=== PATIENT | female | born 1985 | race Caucasian/White ===

== ENCOUNTER → 2022-03-08 13:37 | Outpatient (CLI) | payer OTHER, MEDICAID, SELFPAY ==
--- NOTE | 2022-03-08 | DI.US.S_ITS ---
PROCEDURE: US PELVIC COMPLETE INDICATIONS: Pelvic and perineal pain TECHNIQUE: Real-time scanning was performed of the pelvic organs, with image documentation. Additional endovaginal scanning was necessary due to incomplete visualization of the adnexal and endometrial structures by transabdominal scanning. COMPARISON: [facility], , PELVIC COMPLETE, 09/18/2014, 16:41. FINDINGS: Uterus: Uterus is anteverted and normal in size at 11.6 x 7.9 x 5.8 cm. The myometrium is homogeneous. The endometrium measures 10 mm combined thickness. Ovaries: The right ovary measures 3.5 x 2.5 x 3 cm. The left ovary measures 3 x 3.1 x 2 cm. The ovaries have a normal sonographic appearance. No adnexal masses are seen. Other: No pathologic free abdominal or pelvic fluid. IMPRESSION: No significant pelvic ultrasound abnormality can be seen. We strive to produce accurate, complete, and clear reports of imaging services. To assist us in improving patient care, this report was composed using standard report templates and voice recognition software. Therefore, it may contain abnormal punctuation, insertions and/or omissions. Occasional wrong-word or sound-alike substitutions may occur. Though we review the report and make efforts to correct it, we do recommend that the report be read carefully in proper context to recognize any text inaccuracies. Dictated by: John Webster M.D. on 03/08/2022 at 13:47 Approved by: John Webster M.D. on 03/08/2022 at 13:48
== END ==
PROVIDERS: Family Provider Family Medicine; PCP Family Medicine; Referring Provider Family Medicine; Visit Provider Family Medicine
DX: R10.2 Pelvic and perineal pain (principal)
CPT/HCPCS: 76830; 76856

== ENCOUNTER → 2022-04-12 08:33 | Outpatient (CLI) | payer OTHER, MEDICAID, SELFPAY ==
--- NOTE | 2022-04-12 | DI.NM.S_ITS ---
PROCEDURE: NM HIDA WITH CCK PHARMACEUTICAL: 4.5 mCi Tc-99m mebrofenin IV; 2.0 mcg CCK IV. INDICATIONS: Right upper quadrant pain TECHNIQUE: Following intravenous administration of Tc-99m mebrofenin, sequential anterior abdominal images were obtained. To evaluate the contractile response of the gallbladder in response to Cholecystokinin (CCK), sincalide (0.02 ?g/kg) was administered by slow intravenous infusion approximately 60 minutes after the administration of the radiopharmaceutical. Sequential imaging was continued for 30 minutes after the start of CCK infusion. Gallbladder ejection fraction was calculated. COMPARISON: None. FINDINGS: Biliary scan: There is normal tracer uptake and excretion by the liver. There is normal visualization of the intrahepatic ducts, common bile duct, and gallbladder. There is normal tracer transit into the duodenum. CCK stimulation: There is normal contractile response of the gallbladder to CCK infusion. The calculated gallbladder ejection fraction is 88%; normal values are above 35%. IMPRESSION: 1. Normal filling of gallbladder. No evidence for acute cholecystitis. 2. Normal contractile response of gallbladder to CCK stimulation. Dictated by: James Thacker M.D. on 04/12/2022 at 12:07 Approved by: James Thacker M.D. on 04/12/2022 at 12:08
== END ==
PROVIDERS: Family Provider Family Medicine; PCP Family Medicine; Referring Provider Family Medicine; Visit Provider Family Medicine
DX: R10.11 Right upper quadrant pain (principal)
CPT/HCPCS: 78227; A9537; J2805

== ENCOUNTER → 2022-09-19 10:29 | Outpatient (CLI) | payer OTHER, MEDICAID, SELFPAY ==
--- NOTE | 2022-09-19 10:31 | DI.RAD.S_ITS ---
PROCEDURE: XR THORACIC SPINE 3V INDICATIONS: thoracic pain TECHNIQUE: Three views of the thoracic spine were acquired. COMPARISON: None. FINDINGS: Bones: Very minor S-shaped scoliosis of the thoracic spine. Normal AP alignment. Normal disc spacing. Minor endplate spurring in the midthoracic spine. Twelve pairs of ribs are present and intact where visualized. Soft tissues: No paravertebral stripe thickening. IMPRESSION: 1. Minor thoracic scoliosis and degenerative endplate spurring. Dictated by: Rebekah Darby M.D. on 09/19/2022 at 16:02 Approved by: Rebekah Darby M.D. on 09/19/2022 at 16:04
--- NOTE | 2022-09-19 10:31 | DI.RAD.S_ITS ---
PROCEDURE: XR CHEST 2V INDICATIONS: RUQ/rib pain TECHNIQUE: 2 views of the chest were acquired. COMPARISON: [facility], , CHEST 1 VIEW, 04/16/2008, 3:00. FINDINGS: Surgical changes and devices: None. Lungs and pleura: Lungs are clear. No pleural effusions or pneumothorax. Mediastinum: Mediastinal contours are normal. Heart size is normal. Bones and chest wall: No suspicious bony abnormalities. Soft tissues appear unremarkable. IMPRESSION: No acute cardiopulmonary disease. Dictated by: Rebekah Darby M.D. on 09/19/2022 at 16:05 Approved by: Rebekah Darby M.D. on 09/19/2022 at 16:05
--- NOTE | 2022-09-19 10:31 | DI.RAD.S_ITS ---
PROCEDURE: XR LUMBAR SPINE MIN 4V INDICATIONS: low back pain TECHNIQUE: 5 views of the lumbar spine were acquired, including bilateral oblique views. COMPARISON: None. FINDINGS: Bones: 5 nonrib-bearing vertebrae are present. There is normal bony alignment. No vertebral body compression fractures. No suspicious bony lesions. Soft tissues: Overlying bowel gas pattern is normal. No suspicious soft tissue calcifications. Oblique images: No pars defects. Mild facet sclerosis bilaterally at L5-S1. IMPRESSION: 1. Mild facet arthropathy at L5-S1. Otherwise normal lumbar spine. Dictated by: Rebekah Darby M.D. on 09/19/2022 at 16:04 Approved by: Rebekah Darby M.D. on 09/19/2022 at 16:05
== END ==
PROVIDERS: Family Provider Family Medicine; PCP Family Medicine; Referring Provider Anesthesiology; Visit Provider Anesthesiology
DX: M47.817 Spondylosis without myelopathy or radiculopathy, lumbosacral region (principal); R07.81 Pleurodynia; R10.11 Right upper quadrant pain; M54.6 Pain in thoracic spine; M54.50 Low back pain, unspecified; G58.9 Mononeuropathy, unspecified
CPT/HCPCS: 64450; 71046; 72072; 72110; 76942; 99214; J1030

== ENCOUNTER → 2022-11-25 15:32 | Outpatient (CLI) | payer OTHER, MEDICAID, SELFPAY ==
--- NOTE | 2022-11-25 15:34 | DI.MRI.S_ITS ---
PROCEDURE: MR LUMBAR SPINE WO CON INDICATIONS: Lumbar radiculopathy TECHNIQUE: Noncontrast sagittal T1 spin echo and T2 fast echo, sagittal STIR, and T2 fast spin echo through the lumbar spine. In cases with scoliosis, additional coronal T2 fast spin echo may be performed. COMPARISON: [facility], CR, XR LUMBAR SPINE MIN 4V, 09/19/2022, 10:44. FINDINGS: Image quality: Excellent. Alignment and Curvature: There is normal bony alignment. Bone Marrow: Marrow is of normal overall signal. No acute vertebral body compression fractures. Spinal Cord: Conus medullaris terminates at the L1-L2 level. Visualized cord demonstrates normal signal and size. Paraspinous Soft Tissues: No paravertebral masses. T12-L1: No canal stenosis or foraminal stenosis. L1-L2: No canal stenosis or foraminal stenosis. L2-L3: Mild facet hypertrophy. No canal stenosis or foraminal stenosis. L3-L4: Mild facet hypertrophy. Minimal disc bulge. No canal stenosis or foraminal stenosis. L4-L5: Minimal disc bulge. Mild facet hypertrophy. No canal stenosis or foraminal stenosis. L5-S1: Posterior annulus tear plus mild central posterior disc protrusion. No canal stenosis. Bilateral facet hypertrophy. No significant foraminal stenosis. IMPRESSION: 1. There is multilevel facet arthropathy. 2. At L5-S1, there is posterior annulus tear plus mild central posterior disc protrusion without canal stenosis. 3. No canal stenosis or foraminal stenosis. Dictated by: Francis Allen M.D. on 11/27/2022 at 9:18 Approved by: Francis Allen M.D. on 11/27/2022 at 9:25
== END ==
PROVIDERS: Family Provider Family Medicine; PCP Family Medicine; Referring Provider Anesthesiology; Visit Provider Anesthesiology
DX: M47.26 Other spondylosis with radiculopathy, lumbar region (principal); M47.27 Other spondylosis with radiculopathy, lumbosacral region; M51.17 Intervertebral disc disorders with radiculopathy, lumbosacral region
CPT/HCPCS: 72148

== ENCOUNTER 2023-06-27 13:47 | Outpatient (CLI) | payer OTHER, MEDICAID, SELFPAY ==
--- NOTE | 2023-06-27 13:48 | DI.RAD.S_ITS ---
PROCEDURE: PAIN L INTERLAMINAR/CAUDAL INJ INDICATIONS: SPONDYLOSIS COMPARISON: [facility], CR, XR LUMBAR SPINE MIN 4V, 09/19/2022, 10:44. FINDINGS: Fluoroscopic spot filming was performed to verify placement of a spinal needle at the L5-S1 level, as labeled on the films. Appropriate location of the needle tip was confirmed by injection of iodinated contrast. IMPRESSION: No significant intraprocedural abnormality. Dictated by: John Webster M.D. on 06/27/2023 at 18:16 Approved by: John Webster M.D. on 06/27/2023 at 18:17
[2023-06-27 14:00] VITALS: BP 121/87; PULSE 84; RESP 18; TEMP 36.4; O2SAT 100
[2023-06-27 14:53] VITALS: BP 126/82; PULSE 84; RESP 18; O2SAT 100
[2023-06-27] MEDS: DEXAMETHASONE 10 MG/ML VIAL INJ (14:54)
[2023-06-27] MEDS: IOPAMIDOL 15 ML VIAL 3 ML INJ (14:54)
[2023-06-27 14:58] VITALS: BP 126/79; PULSE 79; RESP 14; O2SAT 100
[2023-06-27 15:02] VITALS: BP 129/86; PULSE 87; RESP 18; O2SAT 100
--- NOTE | 2023-06-27 16:42 | P.PCN_ITS ---
Date/Time/Diagnoses Date of procedure: 06/27/23 Time of procedure: 14:30 Procedure Notes Physician: Joss Cantu Total Fluoroscopy time (seconds): 13 Total sedation minutes: 0 Procedure in detail & Post-procedure care: L5-S1 Interlaminar Epidural Steroid Injection Indications: Linda is presenting for treatment of lumbar radiculopathy with low back and leg pain. Preoperative diagnosis: Lumbar radiculopathy Postoperative diagnosis: Same Focused Examination: Ax3 Mood and affect are normal Vital Signs: VSS Consent: Following review of allergies and potential side effects/complications, including, but not necessarily limited to, infection, allergic reaction, local tissue breakdown, stroke, temporary or permanent nerve injury, paralysis, and possible , the patient indicated that they understood and agreed to proceed.? An informed consent document was signed by the patient, witnessed by a nurse and placed in the patient's chart.? Additionally, other treatment options including medications and physical therapy were reviewed with the patient. All questions were answered. Site was then marked. Anesthesia: Local Position: Prone Monitoring: NIBP, Pulse oximetry, 3 lead EKG Needle used: 18 G 3.5? Tuohy Contrast: Isovue 300M Injectate: Dexamethasone 10 mg with 1% lidocaine 2 mL Technique: The skin was prepped with chloraprep and then draped in a sterile fashion. Time out was performed as per protocol. Oxygen applied via NC. Skin and subcutaneous structures of the needle entry site was then infiltrated with 3 mL of lidocaine 1%. Under AP, lateral and contralateral oblique fluoroscopic control, the Tuohy needle was guided into the L5-S1 epidural space. The space was accessed with loss of resistance technique. Isovue 300M was then injected and the spread was consistent with the epidural space. There was no evidence for intravascular or intrathecal uptake. After negative aspiration, the above- mentioned injectate was then slowly administered and the needle withdrawn. The patient expressed no unusual discomfort or paresthesias during the injection. Band-Aids applied to injection sites. EBL: less than 1 ml Complications: None Post Procedure: Patient was taken to the recovery and monitored. The patient was provided a Pain Log to continue to record the patient's response to the target- specific procedure prior to the patient's follow-up visit with the referring physician. Patient was stable upon discharge. Detailed post procedure instructions were provided. Patient was asked to call in the event of worsening pain, fever, weakness, numbness or bladder or bowel incontinence.
== END 2023-06-27 15:09 | disposition home or self-care (01) ==
PROVIDERS: Family Provider Family Medicine; PCP Family Medicine; Referring Provider Anesthesiology; Visit Provider Anesthesiology
DX: M54.16 Radiculopathy, lumbar region (principal)
CPT/HCPCS: 62323; J1100; J2250

== ENCOUNTER → 2023-07-31 13:09 | Outpatient (CLI) | payer OTHER, MEDICAID, SELFPAY ==
--- NOTE | 2023-07-31 13:10 | DI.MRI.S_ITS ---
PROCEDURE: MR LUMBAR SPINE WO CON INDICATIONS: Lumbar radiculopathy TECHNIQUE: Noncontrast sagittal T1 spin echo and T2 fast echo, sagittal STIR, and T2 fast spin echo through the lumbar spine. In cases with scoliosis, additional coronal T2 fast spin echo may be performed. COMPARISON: [facility], MR, MR LUMBAR SPINE WO CON, 11/25/2022, 15:48. FINDINGS: Image quality: Excellent. Alignment and Curvature: There is normal bony alignment. Bone Marrow: Marrow is of normal overall signal. No acute vertebral body compression fractures. Spinal Cord: Conus medullaris terminates at the L1-2 level. Visualized cord demonstrates normal signal and size. Paraspinous Soft Tissues: No paravertebral masses. Discs: Mild desiccation is present L5-S1. T12-L1: No disc bulge, spinal stenosis or foraminal narrowing. L1-L2: No disc bulge, spinal stenosis or foraminal narrowing. No interval change. Minimal epidural lipomatosis. Mild facet ligamentum flavum hypertrophy. L2-L3: No disc bulge, spinal stenosis or foraminal narrowing. No interval change. Minimal epidural lipomatosis. Mild facet ligamentum flavum hypertrophy. L3-L4: Minimal disc bulge without stenosis or foraminal narrowing. Minimal epidural lipomatosis as well as facet and ligamentum flavum hypertrophy are present. Interval change. L4-L5: Minimal disc bulge without spinal stenosis or foraminal narrowing. Minimal epidural lipomatosis as well as facet and ligamentum flavum hypertrophy are present. No interval change. L5-S1: Mild posterior central disc protrusion without spinal stenosis or foraminal narrowing. Mild facet hypertrophy. IMPRESSION: Stable interval exam demonstrating mild posterior protrusion L5-S1. No spinal stenosis or foraminal narrowing. Dictated by: Shirley Ham M.D. on 07/31/2023 at 21:19 Approved by: Shirley Ham M.D. on 07/31/2023 at 21:22
--- NOTE | 2023-07-31 13:10 | DI.MRI.S_ITS ---
PROCEDURE: MR HEAD/BRAIN WO CON INDICATIONS: Headaches TECHNIQUE: Noncontrast axial T1 spin echo, axial T2 fast spin echo, sagittal and axial FLAIR, coronal T2 fast spin echo, axial gradient echo, axial diffusion and ADC through the brain. COMPARISON: [facility], MR, MR LUMBAR SPINE WO CON, 07/31/2023, 13:51. [facility], MR, BRAIN W&WO CONTRAST, 12/12/2013, 14:36. FINDINGS: Image quality: Diagnostic, with note made of motion artifact. CSF Spaces: Basal cisterns are patent. No extra-axial fluid collections. Ventricles are normal in size and shape. Brain: No intracranial masses or hemorrhage. Guzman/white matter interface is normal. Brainstem appears normal. Diffusion-weighted images demonstrate no acute ischemic insult. No chronic ischemic insults. Normal intravascular flow voids are present. Skull and face: Calvarium has normal marrow signal. Orbits appear normal. Sinuses: Sinuses and mastoids are clear. IMPRESSION: Unremarkable intracranial study, without an imaging explanation found for the patient's presenting history of headache. To the limits of this noncontrast study, no findings of masses or mass effect can be seen. No hydrocephalus or brain edema can be seen. Dictated by: John Webster M.D. on 07/31/2023 at 13:39 Approved by: John Webster M.D. on 07/31/2023 at 13:41
== END ==
PROVIDERS: Family Provider Family Medicine; PCP Family Medicine; Referring Provider Anesthesiology; Visit Provider Anesthesiology
DX: M54.16 Radiculopathy, lumbar region (principal); R51.9 Headache, unspecified; M51.27 Other intervertebral disc displacement, lumbosacral region
CPT/HCPCS: 70551; 72148